=== PATIENT | male | born 1985 | race Asian ===

== ENCOUNTER → 2017-06-20 | Outpatient (CLI) | payer OTHER ==
[~2017-06-20] MED LIST: NO HOME MEDICATIONS
[2017-06-21 14:27] LABS: RUBELLA IGG TORCH EIA Positive (())
== END ==
LOC: COL.LAB 08:46
PROVIDERS: Family Medicine
DX: Z00.00 Encounter for general adult medical examination without abnormal findings (principal); Z13.89 Encounter for screening for other disorder

== ENCOUNTER → 2017-07-04 | Outpatient (CLI) | payer SELFPAY | LOC: COL.LAB 16:18 | DX: Z01.89 Encounter for other specified special examinations (principal) ==